=== PATIENT | male | born 1980 | race Caucasian/White ===

== ENCOUNTER 2017-04-05 13:36 | Emergency (ER) | payer BC, MEDICAID, SELFPAY ==
--- NOTE | 2017-04-05 14:15 | EDM.PDOC ---
ED HPI GENERAL MEDICAL PROBLEM - General Chief Complaint: General Stated Complaint: hands swollen Time Seen by Provider: 04/05/17 14:00 Source of Information: Reports: Patient History Limitations: Reports: No Limitations - History of Present Illness INITIAL COMMENTS - FREE TEXT/NARRATIVE: Robert is a 37 year old male who presents to the ED with complaints of numbness to bilateral tips of his 2nd and 3rd fingers. He reports that he works at the [employer] and has had a new job for about the past month where he is using his hands much more frequent. He also feels like his hands are more swollen than normal. Hands do not appear swollen or red. He has not tried anything at home for these symptoms. Denies any pain. Denies any fever, tingling, loss of movement. He reports that he is worried because his friend is in the hospital "with a blood clot that can travel to the heart" and he "wants to be sure he doesn't have this." He does have dried blood to his fingers. 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 He reports he is unable to get his hands clean. Denies any injury to his hands. Onset Date: 03/16/17 Duration: Getting Worse Location: Reports: Upper Extremity, Left, Upper Extremity, Right Quality: Reports: Other (numbness to finger pads) - Related Data Allergies Allergy/AdvReac Type Severity Reaction Status Date / Time No Known Allergies Allergy Verified 04/05/17 13:40 Home Meds: Home Meds Ibuprofen [Motrin] 400 mg PO QID PRN 04/16/13 [History] Naproxen Sodium [Midol] 220 mg PO DAILY PRN 04/05/17 [History] Past Medical History - Past Health History Medical/Surgical History: Denies Medical/Surgical History Social & Family History - Family History Family Medical History: Noncontributory - Tobacco Use Years of Tobacco use: 10 Used Tobacco, but Quit: No Second Hand Smoke Exposure: Yes - Caffeine Use Caffeine Use: Reports: Coffee, Energy Drinks - Alcohol Use Days Per Week of Alcohol Use: 0 - Recreational Drug Use Recreational Drug Use: No ED ROS GENERAL - Review of Systems Review Of Systems: ROS reveals no pertinent complaints other than HPI. ED EXAM, GENERAL - Physical Exam Exam: See Below Exam Limited By: No Limitations General Appearance: Alert, WD/WN, No Apparent Distress Head: Atraumatic, Normocephalic Neck: Normal Inspection, Supple, Non-Tender, Full Range of Motion Respiratory/Chest: No Respiratory Distress, Lungs Clear, Normal Breath Sounds, No Accessory Muscle Use, Chest Non-Tender Cardiovascular: Normal Peripheral Pulses, Regular Rate, Rhythm, No Edema, No Gallop, No JVD, No Murmur, No Rub Peripheral Pulses: 2+: Radial (L), Radial (R) Extremities: Normal Inspection, Normal Range of Motion, Non-Tender, No Pedal Edema, Normal Capillary Refill. No: Slow Capillary Refill, Joint Swelling, Pallor, Redness Skin Exam: Other (dry cracked hands) Course - Vital Signs Last Recorded V/S: Last Vital Signs Temp 98.1 F 04/05/17 13:36 Pulse 79 04/05/17 13:36 Resp 18 04/05/17 13:36 BP 163/99 H 04/05/17 13:36 Pulse Ox 99 04/05/17 13:36 - Re-Assessments/Exams Free Text/Narrative Re-Assessment/Exam: Negative phalens and tinnel. Discussed with patient that this is likely overuse of his hands, causing some peripheral nerve damage. Discussed that there is no emergent condition. Recommend follow up with PCP if symptoms worsen or do not improve. Recommend wearing gloves at work. Departure - Departure Time of Disposition: 14:20 Disposition: Home, Self-Care 01 Clinical Impression: Repetitive motion injury - Discharge Information Referrals: PCP,None [Primary Care Provider] - Forms: ED Department Discharge Additional Instructions: Ibuprofen 600 mg Q 8 hours as needed for pain and swelling May ice hands/fingers as needed Follow up with PCP if symptoms worsen or do not improve
== END 2017-04-05 14:27 | disposition home or self-care (01) ==
LOC: CC.ED 13:36
DX: M70.842 Other soft tissue disorders related to use, overuse and pressure, left hand (principal); M70.841 Other soft tissue disorders related to use, overuse and pressure, right hand; Z72.0 Tobacco use
CPT/HCPCS: 99282